=== PATIENT | female | born 1980 | race Caucasian/White ===

== ENCOUNTER 2018-12-05 22:31 | Emergency (ER) | payer SELFPAY ==
[2018-12-05 22:58] LABS: Bilirubin Negative (Negative); Blood, Urine Negative (Negative); Clarity Clear (Clear); Glucose, Urine (Dipstick) 50 mg/dL (Negative); Leukocyte Negative Leu/uL (Negative); Nitrite Negative (Negative); Protein, Urine (Dipstick) 10 mg/dL (Neg-Trace); Urobilinogen Normal mg/dL (Less than 2)
[2018-12-05 23:03] LABS: #Basophils 0.1 thou/uL (0.0-0.2); #Eosinphils 0.3 thou/uL (0.0-0.7); #Lymphocytes 4.1 thou/uL (1.20-3.40); #Monocytes 0.7 thou/uL (0.11-0.59); #Neutrophils 6.3 thou/uL (1.40-6.50); %Basophils 0.6 % (0.0-1.0); %Eosinophils 2.7 % (0.0-10.0); %Lymphocytes 35.5 % (21.0-51.0); %Neutrophils 55.2 % (42.0-75.0); Hemoglobin 10.7 g/dL (12.0-16.0); Mean Corpuscular HGB CONC 31.9 g/dL (32.0-36.0); Mean Corpuscular Hemoglobin 24.5 pg (27.0-31.0); Mean Corpuscular Volume 76.8 fL (78.0-98.0); Mean Platelet Volume 7.5 fL (7.4-10.4); Platelet Count 341 thou/uL (130-400); RBC Distribution Width 15.7 % (11.5-14.5); Red Blood Cell (RBC) Count 4.37 mill/uL (4.20-5.40); White Blood Cell (WBC) Count 11.4 thou/uL (4.8-10.8)
[2018-12-05] MEDS ORDERED: Ketorolac Tromethamine 60 MG/2 ML VIAL ONE (23:04)
[2018-12-05 23:14] LABS: BHCG - Serum Negative (NEGATIVE); Pregs Control Background? CLEAR/WHITE (CLR/WHITE); Pregs Control Bar Appear? YES (CONTROL BAR)
[2018-12-05 23:29] LABS: ALT (SGPT) 10 U/L (8-55); AST (SGOT) 13 U/L (5-34); Albumin 3.9 g/dL (3.5-5.0); Alkaline Phosphatase 95 U/L (40-150); Anion Gap 13 mmol/L (10-20); BUN (Urea Nitrogen) 8 mg/dL (7.0-18.7); Bilirubin, Total 0.2 mg/dL (0.2-1.2); Calc. Creatinine Clearance 0 mL/min (70-130); Calcium 9.4 mg/dL (7.8-10.44); Carbon Dioxide 22 mmol/L (22-29); Chloride 105 mmol/L (98-107); Estimated GFR-MDRD Greater than 90; Globulin 3.2 g/dL (2.4-3.5); Glucose 144 mg/dL (70-105); Potassium 3.5 mmol/L (3.5-5.1); Protein, Total 7.1 g/dL (6.0-8.3); Sodium 136 mmol/L (136-145)
--- NOTE | 2018-12-06 07:46 | ULT ---
PELVIC ULTRASOUND: DATE: 12/06/2018. COMPARISON: None. HISTORY: Pelvic pain. TECHNIQUE: Multiplanar, marie scale sonographic imaging of the pelvis is obtained with endovaginal imaging. The ovaries are assessed with color flow and spectral analysis. FINDINGS: The uterus measures 10.0 x 4.8 x 5.4 cm. There is a probable submucosal uterine fibroid in the regio n of the posterior fundus to the left of midline measuring 2.2 x 3.1 x 1.9 cm. Numerous nabothian cysts are present. The left ovary measures approximately 3.6 x 1.5 cm and contains a cyst measuring up to approximately 2.8 cm. Blood flow noted within the left ovary. The right ovary measures approximately 5.6 x 5.2 cm and contains a large cyst measuring 4.8 x 4.0 x 4 .7 cm. There is blood flow within the right ovary. No free fluid noted in the pelvis. Detailed assessment of the left ovary is limited secondary to difficult visualization. IMPRESSION: Prominent right ovarian cyst measuring up to 4.8 cm. No evidence for ovarian torsion. Limited asses sment of the left ovary. POS: [facility]
== END 2018-12-06 03:00 | disposition home or self-care (01) ==
LOC: ERS 22:31
DX: N83.202 Unspecified ovarian cyst, left side (principal); F32.9 Major depressive disorder, single episode, unspecified; F17.210 Nicotine dependence, cigarettes, uncomplicated; Z79.899 Other long term (current) drug therapy
CPT/HCPCS: 36415; 76856; 80053; 81003; 84703; 85025; 96372; J1885